=== PATIENT | male | born 1955 | race Caucasian/White ===

== ENCOUNTER 2023-01-25 11:06 | Inpatient (IN) ==
[2023-01-25] MEDS ORDERED: cefTRIAXone 1 GM VIAL IV ONE (13:33)
[2023-01-25] MEDS ORDERED: 0.9 % SODIUM CHLORIDE 1,000 ML IV ONE (13:33)
[2023-01-25 14:15] LABS: POC Calcium, Ionized 1.12 (1.16-1.32); POC Creatinine 1.1 (0.6-1.2)
[2023-01-25 14:53] LABS: Basophils # (Auto) 0.04 K/mcL (0.00-0.30); Basophils % (Auto) 0.4 % (0.0-2.0); Eosinophils # (Auto) 0.07 K/mcL (0.00-0.70); Eosinophils % (Auto) 0.7 % (0.0-7.0); Hematocrit 42.2 % (40.1-51.0); Hemoglobin 13.6 g/dL (13.7-17.5); Lymphocytes # (Auto) 0.92 K/mcL (1.50-4.80); Lymphocytes % (Auto) 8.8 % (15.5-49.0); Mean Cell Volume 97.2 fL (80.0-100.0); Mean Corpuscular HGB Conc 32.2 g/dL (31.0-36.0); Mean Platelet Volume 9.4 fL (8.8-12.5); Monocytes # (Auto) 0.97 K/mcL (0.10-0.90); Monocytes % (Auto) 9.3 % (1.0-12.0); Neutrophils % (Auto) 80.4 % (38.0-78.0); Platelet Count 201 K/mcL (140-440); RBC 4.34 M/mcL (4.63-6.08); Red Cell Distribution Width 13.4 % (11.5-14.5); WBC 10.4 K/mcL (4.5-11.0)
[2023-01-25 15:12] LABS: ALT/SGPT 16 U/L (<40); AST/SGOT 21 U/L (<40); Albumin 4.3 gm/dL (3.2-5.2); Alkaline Phosphatase 73 U/L (39-117); Bilirubin,Direct < 0.2 mg/dL (0-0.3); Bilirubin,Total 0.4 mg/dL (0.1-1.0); Globulin 3.2 gm/dL (2.2-3.7)
[2023-01-25] MEDS ORDERED: ONDANSETRON 4 MG/2 ML VIAL IV PRN (18:08)
[2023-01-25] MEDS ORDERED: SENNOSIDES 1 TABLET PO PRN (18:08)
[2023-01-25] MEDS ORDERED: ZOLPIDEM 5 MG TABLET PO PRN (18:08)
[2023-01-25] MEDS ORDERED: oxyCODONE IR 5 MG TABLET PO PRN (18:08)
[2023-01-25] MEDS ORDERED: DOCUSATE SODIUM 100 MG CAPSULE PO PRN (18:08)
[2023-01-25 18:14] LABS: Eosinophils % (Manual) 3 % (0-7); Lymphocytes % 17 % (15-49); Monocytes % (Manual) 10 % (1-12); Platelet Estimate NORMAL (Normal); RBC Morphology NORMAL (Normal); Segmented Neutrophils % 70 % (38-78)
[2023-01-25] MEDS: ACETAMINOPHEN 325 MG TABLET PO PRN (19:12)
[2023-01-25] MEDS: CLINDAMYCIN IN 0.9 % SOD CHLOR 900 MG/50 ML BAG IV SCH (19:52)
[2023-01-25] MEDS: HYDROmorphone 2 MG TABLET PO PRN (19:53)
[2023-01-25] MEDS: AMPICILLIN SODIUM/SULBACTAM NA 3 GM in 0.9 % SODIUM CHLORIDE 100 ML IV SCH (20:45)
[2023-01-25] MEDS: 0.9 % SODIUM CHLORIDE 10 ML SYRINGE IV SCH (21:22)
[2023-01-25] MEDS: MELATONIN 3 MG TABLET PO SCH (21:22)
[2023-01-26] MEDS: AMPICILLIN SODIUM/SULBACTAM NA 3 GM in 0.9 % SODIUM CHLORIDE 100 ML IV SCH ×5 (00:15→23:42)
[2023-01-26] MEDS: CLINDAMYCIN IN 0.9 % SOD CHLOR 900 MG/50 ML BAG IV SCH ×3 (01:02→18:30)
[2023-01-26] MEDS: HYDROmorphone 2 MG TABLET PO PRN ×4 (02:00→21:30)
[2023-01-26] MEDS: 0.9 % SODIUM CHLORIDE 10 ML SYRINGE IV SCH ×4 (05:12→21:31)
[2023-01-26 06:59] LABS: Basophils # (Auto) 0.04 K/mcL (0.00-0.30); Basophils % (Auto) 0.5 % (0.0-2.0); Eosinophils # (Auto) 0.06 K/mcL (0.00-0.70); Eosinophils % (Auto) 0.7 % (0.0-7.0); Hemoglobin 12.7 g/dL (13.7-17.5); Lymphocytes # (Auto) 0.86 K/mcL (1.50-4.80); Lymphocytes % (Auto) 10.2 % (15.5-49.0); Mean Cell Volume 99.3 fL (80.0-100.0); Mean Corpuscular HGB Conc 31.8 g/dL (31.0-36.0); Monocytes % (Auto) 11.8 % (1.0-12.0); Neutrophils % (Auto) 76.3 % (38.0-78.0); Platelet Count 196 K/mcL (140-440); RBC 4.03 M/mcL (4.63-6.08); Red Cell Distribution Width 13.6 % (11.5-14.5); WBC 8.4 K/mcL (4.5-11.0)
[2023-01-26 07:21] LABS: ALT/SGPT 14 U/L (<40); AST/SGOT 16 U/L (<40); Albumin 3.4 gm/dL (3.2-5.2); Albumin/Globulin Ratio 1.1 (1.0-2.3); Alkaline Phosphatase 62 U/L (39-117); Bilirubin,Total 0.5 mg/dL (0.1-1.0); Blood Urea Nitrogen 12 mg/dL (8-23); Calcium 8.4 mg/dL (8.6-10.4); Carbon Dioxide 21 mmol/L (22-30); Chloride 98 mmol/L (96-108); Globulin 3.2 gm/dL (2.2-3.7); Glomerular Filtration Rate 77; Glucose 159 mg/dL (70-105)
[2023-01-26 07:44] LABS: Estimated Average Glucose(eAG) 134 mg/dL; Hemoglobin A1C 6.3 % Hgb (4.0-6.0)
[2023-01-26] MEDS: ACETAMINOPHEN 325 MG TABLET PO PRN ×2 (10:08→20:47)
[2023-01-26] MEDS ORDERED: DOCUSATE SODIUM 100 MG CAPSULE PO PRN (14:00)
[2023-01-26] MEDS: ASPIRIN 81 MG TAB.CHEW PO SCH (14:24)
[2023-01-26] MEDS: METOPROLOL TARTRATE 25 MG TABLET PO SCH ×2 (14:24→20:47)
[2023-01-26] MEDS: metFORMIN 500 MG TAB.XL.24H PO SCH (17:24)
[2023-01-26] MEDS: RIVAROXABAN 20 MG TABLET PO SCH (17:24)
[2023-01-26] MEDS: ATORVASTATIN 40 MG TABLET PO SCH (20:47)
[2023-01-26] MEDS: DULoxetine 30 MG CAPSULE PO SCH (20:47)
[2023-01-26] MEDS: MELATONIN 3 MG TABLET PO SCH (20:47)
[2023-01-27] MEDS: CLINDAMYCIN IN 0.9 % SOD CHLOR 900 MG/50 ML BAG IV SCH ×3 (01:47→17:16)
[2023-01-27] MEDS: 0.9 % SODIUM CHLORIDE 10 ML SYRINGE IV SCH ×3 (05:06→21:25)
[2023-01-27] MEDS: AMPICILLIN SODIUM/SULBACTAM NA 3 GM in 0.9 % SODIUM CHLORIDE 100 ML IV SCH ×4 (05:07→23:42)
[2023-01-27] MEDS: HYDROmorphone 2 MG TABLET PO PRN ×3 (05:09→18:34)
[2023-01-27 06:48] LABS: Basophils # (Auto) 0.06 K/mcL (0.00-0.30); Basophils % (Auto) 0.8 % (0.0-2.0); Eosinophils # (Auto) 0.11 K/mcL (0.00-0.70); Eosinophils % (Auto) 1.4 % (0.0-7.0); Hematocrit 39.1 % (40.1-51.0); Hemoglobin 12.1 g/dL (13.7-17.5); Lymphocytes # (Auto) 0.84 K/mcL (1.50-4.80); Lymphocytes % (Auto) 10.5 % (15.5-49.0); Mean Cell Volume 99.7 fL (80.0-100.0); Mean Corpuscular HGB Conc 30.9 g/dL (31.0-36.0); Mean Platelet Volume 9.1 fL (8.8-12.5); Monocytes # (Auto) 1.06 K/mcL (0.10-0.90); Monocytes % (Auto) 13.3 % (1.0-12.0); Neutrophils % (Auto) 73.6 % (38.0-78.0); Platelet Count 205 K/mcL (140-440); RBC 3.92 M/mcL (4.63-6.08); Red Cell Distribution Width 13.6 % (11.5-14.5)
[2023-01-27 07:16] LABS: ALT/SGPT 20 U/L (<40); AST/SGOT 26 U/L (<40); Albumin 3.3 gm/dL (3.2-5.2); Albumin/Globulin Ratio 1.1 (1.0-2.3); Alkaline Phosphatase 65 U/L (39-117); Bilirubin,Total 0.5 mg/dL (0.1-1.0); Blood Urea Nitrogen 17 mg/dL (8-23); Calcium 8.4 mg/dL (8.6-10.4); Carbon Dioxide 22 mmol/L (22-30); Chloride 100 mmol/L (96-108); Glomerular Filtration Rate 77; Glucose 137 mg/dL (70-105)
[2023-01-27] MEDS: glipiZIDE 5 MG TABLET PO SCH (07:18)
[2023-01-27] MEDS: metFORMIN 500 MG TAB.XL.24H PO SCH ×2 (07:18→16:37)
[2023-01-27] MEDS: FERROUS SULFATE 325 MG TABLET PO SCH (07:18)
[2023-01-27] MEDS: METOPROLOL TARTRATE 25 MG TABLET PO SCH ×2 (09:05→21:25)
[2023-01-27] MEDS: ASPIRIN 81 MG TAB.CHEW PO SCH (09:06)
[2023-01-27] MEDS ORDERED: diphenhydrAMINE 25 MG CAPSULE PO PRN (10:13)
[2023-01-27] MEDS: CYCLOBENZAPRINE 10 MG TABLET PO PRN ×2 (11:41→23:45)
[2023-01-27] MEDS: RIVAROXABAN 20 MG TABLET PO SCH (16:37)
[2023-01-27] MEDS: ACETAMINOPHEN 325 MG TABLET PO PRN (16:37)
[2023-01-27] MEDS: DULoxetine 30 MG CAPSULE PO SCH (21:23)
[2023-01-27] MEDS: MELATONIN 3 MG TABLET PO SCH (21:24)
[2023-01-27] MEDS: ATORVASTATIN 40 MG TABLET PO SCH (21:25)
[2023-01-28] MEDS: CLINDAMYCIN IN 0.9 % SOD CHLOR 900 MG/50 ML BAG IV SCH ×2 (01:09→09:05)
[2023-01-28] MEDS: HYDROmorphone 2 MG TABLET PO PRN ×2 (04:19→09:05)
[2023-01-28] MEDS: CYCLOBENZAPRINE 10 MG TABLET PO PRN (04:27)
[2023-01-28] MEDS: AMPICILLIN SODIUM/SULBACTAM NA 3 GM in 0.9 % SODIUM CHLORIDE 100 ML IV SCH ×2 (05:10→11:50)
[2023-01-28] MEDS: 0.9 % SODIUM CHLORIDE 10 ML SYRINGE IV SCH (05:11)
[2023-01-28 06:40] LABS: Basophils # (Auto) 0.03 K/mcL (0.00-0.30); Basophils % (Auto) 0.4 % (0.0-2.0); Eosinophils # (Auto) 0.08 K/mcL (0.00-0.70); Eosinophils % (Auto) 1.1 % (0.0-7.0); Hematocrit 41.6 % (40.1-51.0); Lymphocytes # (Auto) 0.67 K/mcL (1.50-4.80); Lymphocytes % (Auto) 9.3 % (15.5-49.0); Mean Cell Volume 100.2 fL (80.0-100.0); Mean Corpuscular HGB Conc 31.3 g/dL (31.0-36.0); Monocytes # (Auto) 0.78 K/mcL (0.10-0.90); Monocytes % (Auto) 10.8 % (1.0-12.0); Platelet Count 229 K/mcL (140-440); RBC 4.15 M/mcL (4.63-6.08); Red Cell Distribution Width 13.5 % (11.5-14.5); WBC 7.2 K/mcL (4.5-11.0)
[2023-01-28 06:59] LABS: ALT/SGPT 41 U/L (<40); AST/SGOT 51 U/L (<40); Albumin 3.1 gm/dL (3.2-5.2); Albumin/Globulin Ratio 0.8 (1.0-2.3); Alkaline Phosphatase 78 U/L (39-117); Bilirubin,Total 0.5 mg/dL (0.1-1.0); Blood Urea Nitrogen 14 mg/dL (8-23); Carbon Dioxide 19 mmol/L (22-30); Chloride 99 mmol/L (96-108); Globulin 3.7 gm/dL (2.2-3.7); Glomerular Filtration Rate 87; Glucose 145 mg/dL (70-105)
[2023-01-28] MEDS: FERROUS SULFATE 325 MG TABLET PO SCH (08:07)
[2023-01-28] MEDS: metFORMIN 500 MG TAB.XL.24H PO SCH (08:09)
[2023-01-28] MEDS: ASPIRIN 81 MG TAB.CHEW PO SCH (08:10)
[2023-01-28] MEDS: glipiZIDE 5 MG TABLET PO SCH (08:10)
[2023-01-28] MEDS: METOPROLOL TARTRATE 25 MG TABLET PO SCH (08:13)
[2023-01-28] MEDS ORDERED: HYDROmorphone 2 MG TABLET PO PRN (09:00)
== END 2023-01-28 14:10 | disposition home or self-care (01) ==
LOC: ED 11:06 → MEDSUR 18:02
PROVIDERS: ADMIT Internal Medicine; ATTEND Internal Medicine

== ENCOUNTER 2025-01-21 18:56 | Inpatient (IN) ==
[2025-01-21] MEDS: 0.9 % SODIUM CHLORIDE 2,190 ML IV ONE (19:14)
[2025-01-21] MEDS: ACETAMINOPHEN 325 MG TABLET PO ONE (19:40)
[2025-01-21 20:50] LABS: Basophils # (Auto) 0.01 K/mcL (0.00-0.30); Basophils % (Auto) 0.1 % (0.0-2.0); Eosinophils # (Auto) 0.03 K/mcL (0.00-0.70); Eosinophils % (Auto) 0.2 % (0.0-7.0); Hematocrit 36.7 % (40.1-51.0); Hemoglobin 12.0 g/dL (13.7-17.5); Lymphocytes # (Auto) 0.49 K/mcL (1.50-4.80); Lymphocytes % (Auto) 4.1 % (15.5-49.0); Mean Corpuscular HGB Conc 32.7 g/dL (31.0-36.0); Monocytes # (Auto) 0.57 K/mcL (0.10-0.90); Monocytes % (Auto) 4.7 % (1.0-12.0); Neutrophils % (Auto) 90.2 % (38.0-78.0); Platelet Count 182 K/mcL (140-440); RBC 3.78 M/mcL (4.63-6.08); WBC 12.1 K/mcL (4.5-11.0)
[2025-01-21 20:51] LABS: INR 1.0 (0.9-1.1); Prothrombin Time 13.7 sec (11.9-14.5)
[2025-01-21 20:57] LABS: ALT/SGPT 41 U/L (<40); AST/SGOT 28 U/L (<40); Albumin 3.8 gm/dL (3.2-5.2); Albumin/Globulin Ratio 1.6 (1.0-2.3); Alkaline Phosphatase 54 U/L (39-117); Anion Gap 12.0 (8.0-16.0); Bilirubin,Total 0.4 mg/dL (0.1-1.0); Blood Urea Nitrogen 35 mg/dL (8-23); Calcium 9.0 mg/dL (8.6-10.4); Carbon Dioxide 23 mmol/L (22-30); Chloride 99 mmol/L (96-108); Creatine Kinase 99 U/L (24-195); Globulin 2.4 gm/dL (2.2-3.7); Glucose 76 mg/dL (70-105); Potassium 3.9 mmol/L (3.3-5.1); Sodium 134 mmol/L (133-145)
[2025-01-21 20:58] LABS: C-Reactive Protein 4.74 mg/dL (0.03-0.80)
[2025-01-21 21:10] LABS: Bacteria,Urine Many /hpf (0); Bilirubin,Urine NEGATIVE (Negative); Color,Urine LT. YELLOW; Glucose,Urine (UA) NEGATIVE (Negative); Ketones,Urine NEGATIVE (Negative); Leukocyte Esterase,Urine TRACE /uL (Negative); PH,Urine 7.0 (5.0-9.0); Protein,Urine NEGATIVE (Negative); Specific Gravity,Urine 1.010 (1.000-1.035); Urobilinogen,Urine 0.2 mg/dL
[2025-01-21] MEDS: PIPERACILLIN SODIUM/TAZOBACTAM 3.375 GM in DEXTROSE 5% IN WATER 50 ML IV ONE (21:34)
[2025-01-21] MEDS ORDERED: ACETAMINOPHEN 650 MG/65 ML BAG IV PRN (22:59)
[2025-01-21] MEDS ORDERED: ONDANSETRON 4 MG/2 ML VIAL IV PRN (23:45)
[2025-01-21] MEDS ORDERED: IPRATROPIUM/ALBUTEROL 3 ML AMPUL.NEB NEB PRN (23:45)
[2025-01-21] MEDS ORDERED: hydrALAZINE 20 MG/ML VIAL IV PRN (23:45)
[2025-01-21] MEDS ORDERED: DEXTROSE 50% 50 ML VIAL IV PRN (23:45)
[2025-01-21] MEDS ORDERED: DEXTROSE 31 GM ORAL.SUSP PO PRN (23:45)
[2025-01-22] MEDS: 0.9 % SODIUM CHLORIDE 1,000 ML IV SCH (00:31)
[2025-01-22] MEDS: ACETAMINOPHEN 325 MG TABLET PO PRN (03:29)
[2025-01-22] MEDS: PIPERACILLIN SODIUM/TAZOBACTAM 3.375 GM in DEXTROSE 5% IN WATER 50 ML IV SCH (03:38)
[2025-01-22] MEDS: 0.9 % SODIUM CHLORIDE 10 ML SYRINGE IV SCH (05:35)
[2025-01-22] MEDS: ACETAMINOPHEN 325 MG TABLET PO ONE (05:36)
[2025-01-22 07:09] LABS: Basophils # (Auto) 0.02 K/mcL (0.00-0.30); Basophils % (Auto) 0.2 % (0.0-2.0); Eosinophils # (Auto) 0.02 K/mcL (0.00-0.70); Eosinophils % (Auto) 0.2 % (0.0-7.0); Hematocrit 30.6 % (40.1-51.0); Hemoglobin 10.3 g/dL (13.7-17.5); Lymphocytes # (Auto) 0.67 K/mcL (1.50-4.80); Lymphocytes % (Auto) 6.9 % (15.5-49.0); Mean Corpuscular HGB Conc 33.7 g/dL (31.0-36.0); Monocytes # (Auto) 0.65 K/mcL (0.10-0.90); Monocytes % (Auto) 6.6 % (1.0-12.0); Neutrophils % (Auto) 85.6 % (38.0-78.0); Platelet Count 162 K/mcL (140-440); RBC 3.15 M/mcL (4.63-6.08); WBC 9.8 K/mcL (4.5-11.0)
[2025-01-22] MEDS: INSULIN LISPRO 1 UNIT/0.01 ML UNIT SQ SCH (07:39)
[2025-01-22 07:51] LABS: ALT/SGPT 30 U/L (<40); AST/SGOT 22 U/L (<40); Albumin 3.1 gm/dL (3.2-5.2); Albumin/Globulin Ratio 1.5 (1.0-2.3); Alkaline Phosphatase 45 U/L (39-117); Anion Gap 8.0 (8.0-16.0); Bilirubin,Total 0.7 mg/dL (0.1-1.0); Blood Urea Nitrogen 25 mg/dL (8-23); Calcium 8.0 mg/dL (8.6-10.4); Carbon Dioxide 23 mmol/L (22-30); Chloride 105 mmol/L (96-108); Globulin 2.1 gm/dL (2.2-3.7); Glucose 146 mg/dL (70-105); Potassium 3.4 mmol/L (3.3-5.1); Sodium 136 mmol/L (133-145)
[2025-01-22] MEDS: CYCLOBENZAPRINE 10 MG TABLET PO SCH ×2 (09:23→15:35)
[2025-01-22] MEDS: PIPERACILLIN SODIUM/TAZOBACTAM 3.375 GM in DEXTROSE 5% IN WATER 100 ML IV SCH (09:28)
[2025-01-22] MEDS: DOCUSATE SODIUM 100 MG CAPSULE PO SCH (09:28)
[2025-01-22 10:23] LABS: Estimated Average Glucose(eAG) 209 mg/dL; Hemoglobin A1C 8.9 % Hgb (4.0-6.0)
[2025-01-22] MEDS ORDERED: CYCLOBENZAPRINE 10 MG TABLET PO PRN (12:39)
[2025-01-22] MEDS: LORATADINE 10 MG TABLET PO PRN (15:36)
[2025-01-22] MEDS: RIVAROXABAN 20 MG TABLET PO SCH (17:18)
[2025-01-22] MEDS: MIRTAZAPINE 15 MG TABLET PO SCH (21:56)
[2025-01-22] MEDS: MELATONIN 3 MG TABLET PO SCH (21:57)
[2025-01-22] MEDS: SENNOSIDES 1 TABLET PO SCH (21:59)
[2025-01-23 06:24] LABS: Basophils # (Auto) 0.01 K/mcL (0.00-0.30); Basophils % (Auto) 0.1 % (0.0-2.0); Eosinophils # (Auto) 0.02 K/mcL (0.00-0.70); Eosinophils % (Auto) 0.3 % (0.0-7.0); Hematocrit 32.3 % (40.1-51.0); Hemoglobin 10.4 g/dL (13.7-17.5); Lymphocytes # (Auto) 0.52 K/mcL (1.50-4.80); Lymphocytes % (Auto) 6.8 % (15.5-49.0); Mean Corpuscular HGB Conc 32.2 g/dL (31.0-36.0); Monocytes # (Auto) 0.50 K/mcL (0.10-0.90); Monocytes % (Auto) 6.5 % (1.0-12.0); Neutrophils % (Auto) 85.8 % (38.0-78.0); Platelet Count 144 K/mcL (140-440); RBC 3.25 M/mcL (4.63-6.08); WBC 7.7 K/mcL (4.5-11.0)
[2025-01-23 06:40] LABS: ALT/SGPT 32 U/L (<40); AST/SGOT 22 U/L (<40); Albumin 3.2 gm/dL (3.2-5.2); Albumin/Globulin Ratio 1.3 (1.0-2.3); Alkaline Phosphatase 50 U/L (39-117); Anion Gap 9.0 (8.0-16.0); Bilirubin,Total 0.5 mg/dL (0.1-1.0); Blood Urea Nitrogen 16 mg/dL (8-23); Calcium 8.2 mg/dL (8.6-10.4); Carbon Dioxide 22 mmol/L (22-30); Chloride 106 mmol/L (96-108); Globulin 2.4 gm/dL (2.2-3.7); Glucose 111 mg/dL (70-105); Potassium 3.6 mmol/L (3.3-5.1); Sodium 137 mmol/L (133-145)
[2025-01-23] MEDS: INSULIN GLARGINE, HUMAN 1 UNIT/0.01 ML SQ SCH (08:26)
[2025-01-23] MEDS: METOPROLOL SUCCINATE 25 MG TAB.XL.24H PO SCH (08:34)
[2025-01-23 08:50] VITALS: O2SAT 97
[2025-01-23 12:28] VITALS: TEMP 98
== END 2025-01-23 13:40 | disposition home or self-care (01) | DRG 689 ==
LOC: ED 18:56 → MEDSUR 23:44
PROVIDERS: ADMIT Internal Medicine; ATTEND Internal Medicine